=== PATIENT | male | born 2000 | race Caucasian/White ===

== ENCOUNTER 2021-05-03 19:22 | Emergency (ER) | payer BC, OTHER ==
[~2021-05-03] VITALS: Ht 182.9 cm; Wt 122.5 kg
[2021-05-03] MEDS ORDERED: CEPHALEXIN500 MG PO (20:02)
[2021-05-03 20:55] VITALS: BP 117/71
== END 2021-05-03 20:55 | disposition home or self-care (01) ==
LOC: ER 19:22
DX: S61.210A Laceration without foreign body of right index finger without damage to nail, initial encounter (principal); W45.8XXA Other foreign body or object entering through skin, initial encounter; Y93.89 Activity, other specified; Y92.89 Other specified places as the place of occurrence of the external cause; Y99.9 Unspecified external cause status